=== PATIENT | male | born 1995 | race Two or more races ===

== ENCOUNTER 2023-04-15 04:13 | Emergency (ER) | payer MEDICAID ==
[~2023-04-15] VITALS: Ht 188 cm; Wt 84.0 kg
[2023-04-15 04:18] VITALS: TEMP 98
[2023-04-15 07:34] VITALS: BP 128/86; PULSE 72; RESP 15
== END 2023-04-15 07:36 | disposition home or self-care (01) ==
LOC: EMS 04:16
DX: S92.252A Displaced fracture of navicular [scaphoid] of left foot, initial encounter for closed fracture (principal); F12.90 Cannabis use, unspecified, uncomplicated; Z98.890 Other specified postprocedural states; W19.XXXA Unspecified fall, initial encounter; Y93.89 Activity, other specified; Y92.89 Other specified places as the place of occurrence of the external cause; Y99.8 Other external cause status
CPT/HCPCS: 99283